=== PATIENT | female | born 1980 | race Two or more races ===

== ENCOUNTER 2020-04-04 01:38 | Emergency (ER) | payer MEDICAID, OTHER ==
[~2020-04-04] VITALS: Ht 152.4 cm; Wt 88.5 kg
[2020-04-04 03:10] VITALS: BP 141/96
[2020-04-04] MEDS: FLUORESCEIN SOD 1 MG TEST STRIP EACHEYE ONE (03:24)
[2020-04-04] MEDS: TETRACAINE HCL 0.5% OPTH(EYE) SOLN 4ML EACHEYE ONE (03:25)
[2020-04-04] MEDS: SODIUM CHLORIDE 0.9% 1,000 ML IV ONE (03:38)
[2020-04-04] MEDS: methylPREDNISolone SOD SUCC 40 MG/ML VL IV ONE (03:56)
[2020-04-04] MEDS: KETOROLAC TROMETH 30 MG/ML 1ML VIAL IV ONE (03:57)
== END 2020-04-04 05:05 | disposition home or self-care (01) ==
LOC: ER 01:38
DX: H05.223 Edema of bilateral orbit (principal); R51.9 Headache, unspecified; T39.95XA Adverse effect of unspecified nonopioid analgesic, antipyretic and antirheumatic, initial encounter; E66.9 Obesity, unspecified; Z68.38 Body mass index [BMI] 38.0-38.9, adult; Y92.9 Unspecified place or not applicable
CPT/HCPCS: 96361; 96374; 96375; 99284; J1885; J2920; J7030

== ENCOUNTER 2020-04-12 18:46 | Emergency (ER) | payer MEDICAID ==
[~2020-04-12] VITALS: Ht 170.2 cm; Wt 88.5 kg
[2020-04-12] MEDS ORDERED: SODIUM CHLORIDE 0.9% 1,000 ML IV ONE (23:00)
[2020-04-12] MEDS ORDERED: KETOROLAC TROMETH 30 MG/ML 1ML VIAL IV ONE (23:00)
[2020-04-13 00:16] VITALS: BP 136/88
== END 2020-04-13 00:44 | disposition home or self-care (01) ==
LOC: ER 18:46
DX: R22.0 Localized swelling, mass and lump, head (principal); E66.9 Obesity, unspecified; Z68.30 Body mass index [BMI] 30.0-30.9, adult
CPT/HCPCS: 96361; 96374; 99283; J1885; J7030

== ENCOUNTER 2021-06-18 23:49 | Emergency (ER) | payer MEDICAID ==
[~2021-06-18] VITALS: Ht 170.2 cm; Wt 86.2 kg
[2021-06-19 01:17] LABS: Basophils # (auto) 0 10 ^3/uL (0-0.2); Eosinophils # (auto) 0.2 10 ^3/uL (0-0.8); Hemoglobin 12.4 g/dL (12.2-16.2); Lymphocytes # (auto) 2.9 10 ^3/uL (0.4-5.4); Mean Corpuscular Volume 67.5 fL (80.0-100.0); Monocytes # (auto) 0.9 10 ^3/uL (0-1.3); Monocytes % (auto) 9.1 % (0.0-12.0)
[2021-06-19 01:20] LABS: Basophils % (auto) 0.5 % (0.0-2.0); Eosinophils % (auto) 2.3 % (0.0-7.0); Hematocrit 37.3 % (36.0-46.0); Lymphocytes % (auto) 30.4 % (10.0-50.0); Mean Corpuscular Hemoglobin 22.4 pg (28.0-32.0); Mean Corpuscular Hgb Conc. 33.2 g/dL (32.0-36.0); Neutrophils # (auto) 5.6 10 ^3/uL (1.6-8.6); Neutrophils % (auto) 57.7 % (37.0-80.0); Nucleated Red Blood Cells % 0.1 %; Red Blood Cells 5.52 10^6/uL (4.0-5.20); White Blood Cell 9.6 10^3/uL (4.4-10.8)
[2021-06-19 01:34] LABS: INR 0.97 (0.9-1.15); Partial Thromboplastin Time 25.9 sec (23.6-33.0)
[2021-06-19 01:37] LABS: Albumin 3.5 g/dL (3.4-5.0); Calcium 8.3 mg/dL (8.5-10.1); Magnesium 2.5 mg/dL (1.6-2.6); Potassium 4.2 mmol/L (3.5-5.1)
[2021-06-19 01:39] LABS: BUN/Creatinine Ratio 17.6
[2021-06-19 01:41] LABS: Bilirubin, Total 0.3 mg/dL (0.2-1.0); Total Protein 7.2 g/dL (6.4-8.2)
[2021-06-19 07:05] LABS: Urine Bacteria NONE SEEN /hpf (None Seen); Urine Blood Negative /uL (Negative); Urine Specific Gravity 1.005 (1.001-1.035); Urine WBC 1 /hpf (0 - 5)
[2021-06-19 13:36] VITALS: BP 132/68
== END 2021-06-19 13:41 | disposition home or self-care (01) ==
LOC: ER 23:49
DX: M54.2 Cervicalgia (principal); R07.89 Other chest pain; E04.1 Nontoxic single thyroid nodule; R71.8 Other abnormality of red blood cells; J45.909 Unspecified asthma, uncomplicated; Z32.02 Encounter for pregnancy test, result negative
CPT/HCPCS: 36415; 70490; 71045; 80053; 81001; 81025; 83735; 83880; 84443; 84484; 85025; 85610; 85730; 93005

== ENCOUNTER 2023-11-30 12:11 | Inpatient (IN) | payer MEDICAID ==
[~2023-11-30] VITALS: Ht 170.2 cm; Wt 83.1 kg
--- NOTE | 2023-11-30 12:46 | ED.PDOC ---
Evi. trauma (HPI) HPI Comments 43 y.o female presents to the ED s/p fall today. Patient reports she fell 4 feet from a ladder at home today. Patient's spouse reports finding her on the floor, to her left side and was unconscious. Ladder was fallen down and twisted in between patient's legs. Patient is unable to recall how she fell, states she was trying to climb down the ladders and that is all she recalls. Patient presents with left sided body and head pain. Patient also has a laceration to the left side of her head. No nausea, vomiting, dizziness, chest pain reported. Patient denies any blood thinner use. Chief Complaint: Fall Injury Time Seen by MD: 12:31 Primary Care Provider: NONE Reviewed notes: Nurses Notes, Medications, Allergies Allergies: Coded Allergies: NO KNOWN ALLERGIES (Unverified , 04/04/20) Information Source: Patient Mode of Arrival: Ambulatory Severity: Moderate Timing: Hours Duration: Since onset Location: (L) Forearm, Head, (L) Hip, (L) Leg, Neck, (L) Shoulder Location of laceration: Head Mechanism: Fall Associated signs and symtoms: Headache Past Medical History PAST MEDICAL HISTORY: Arthritis, Asthma, Thyroid Surgical History: Denies all surgeries POULTRY CUTTER History: No Pertinent POULTRY CUTTER History Family History Family History: Family hx of Cancer Social History Smoker: Non-Smoker Alcohol: Occasionally Drugs: Denies Drug Use Lives In: Home Constitutional: denies: chills, diaphoresis, fatigue, fever, malaise, sweats, weakness, others EENTM: denies: blurred vision, double vision, ear bleeding, ear discharge, ear drainage, ear pain, ear ringing, eye pain, eye redness, hearing loss, mouth pain, mouth swelling, nasal discharge, nose bleeding, nose congestion, nose pain, photophobia, tearing, throat pain, throat swelling, voice changes, others Respiratory: denies: cough, hemoptysis, orthopnea, SOB at rest, shortness of breath, SOB with excertion, stridor, wheezing, others Cardiovascular: denies: chest pain, dizzy spells, diaphoresis, Dyspnea on exertion, edema, irregular heart beat, left arm pain, lightheadedness, palpitations, PND, syncope, others Gastrointestinal: denies: abdomen distended, abdominal pain, blood streaked bowels, constipated, diarrhea, dysphagia, difficulty swallowing, hematemesis, melena, nausea, poor appetite, poor fluid intake, rectal bleeding, rectal pain, vomiting, others Genitourinary: denies: abnormal vagina bleeding, burning, dyspareunia, dysuria, flank pain, frequency, hematuria, incontinence, pain, , vagina discharge, urgency, others Neurological: reports: headache, others (left sided body pain ); denies: dizziness, fainting, left sided numbness, left sided weakness, numbness, paresthesia, pre-existing deficit, right sided numbness, right sided weakness, seizure, speech problems, tingling, tremors, weakness Musculoskeletal: denies: back pain, gout, joint pain, joint swelling, muscle pain, muscle stiffness, neck pain, others Integumetry: reports: laceration; denies: bruises, change in color, change in hair/nails, dryness, lesions, lumps, rash, wounds, others Allergic/Immunocompromised: denies: Difficulty Healing, Frequent Infections, Hives, Itching, others Hematologic/Lymphatic: denies: anemia, blood clots, easy bleeding, easy bruis ing, swollen glands, others Endocrine: denies: excessive hunger, excessive sweating, excessive thirst, exc essive urination, flushing, intolerance to cold, intolerance to heat, unexplained weight gain, unexplained weight loss, others Psychiatric: denies: anxiety, bipolar disorder, depression, hopeless, panic disorder, schizophrenia, sleepless, suicidal, others All Other Systems: Reviewed and Negative Physical Exam General Appearance: Moderate Distress HEENT: Normal ENT Inspection, Pharynx Normal, TMs Normal Neck: Full Range of Motion, Non-Tender, Normal, Normal Inspection Respiratory: Chest Non-Tender, Lungs Clear, No Accessory Muscle Use, No Respiratory Distress, Normal Breath Sounds Cardiovascular: No Edema, No JVD, No Murmur, No Gallop, Normal Peripheral Pulses, Regular Rate/Rhythm Breast Exam: Deferred Gastrointestinal: No Organomegaly, Non Tender, No Pulsatile Mass, Normal Bowel Sounds, Soft Genitalia: Deferred Pelvic: Deferred Rectal: Deferred Extremities: No calf tenderness, Normal capillary refill, Normal inspection, Normal range of motion, Non-tender, No pedal edema Musculoskeletal : Apperance: Normal Neurologic: Alert, database design analyst II-XII nml as Tested, No Motor Deficits, Normal Affect, Normal Mood, No Sensory Deficits Cerebellar Function: Normal Reflexes: Normal Skin: Bruises (Left side of the scalp minor scrape), Wounds (Left scalp) Peripheral Pulses: 3+ Radial (R), 3+ Radial (L) Lymphatic: No Adenopathy Was a procedure done? Was a procedure done?: No Differential Diagnosis Multiple Trauma: Closed Head Injury, Fractures, Abrasions, Contusion, Laceration X-Ray, Labs, Meds, VS Vital Signs Date Time Temp Pulse Resp B/P (MAP) Pulse Ox O2 Delivery O2 Flow Rate FiO2 11/30/23 12:15 98.5 92 16 161/113 (129) 98 Lab Test 11/30/23 13:21 Range/Units White Blood Count 11.6 H 4.4-10.8 10^3/uL Red Blood Count 5.72 H 4.0-5.20 10^6/uL Hemoglobin 12.4 12.2-16.2 g/dL Hematocrit 39.2 36.0-46.0 % Mean Corpuscular Volume 68.5 L 80.0-100.0 fL Mean Corpuscular Hemoglobin 21.6 L 28.0-32.0 pg Mean Corpuscular Hemoglobin Concent 31.6 L 32.0-36.0 g/dL Red Cell Distribution Width 15.0 H 11.8-14.3 % Platelet Count 236 140-450 10^3/uL Mean Platelet Volume 8.4 6.9-10.8 fL Neutrophils (%) (Auto) 74.1 37.0-80.0 % Lymphocytes (%) (Auto) 15.8 10.0-50.0 % Monocytes (%) (Auto) 7.2 0.0-12.0 % Eosinophils (%) (Auto) 2.7 0.0-7.0 % Basophils (%) (Auto) 0.2 0.0-2.0 % Neutrophils # (Auto) 8.6 1.6-8.6 10 ^3/uL Lymphocytes # (Auto) 1.8 0.4-5.4 10 ^3/uL Monocytes # (Auto) 0.8 0-1.3 10 ^3/uL Eosinophils # (Auto) 0.3 0-0.8 10 ^3/uL Basophils # (Auto) 0 0-0.2 10 ^3/uL Nucleated Red Blood Cells 0.0 % Platelet Estimate Adequate Hypochromasia (manual) Moderate Microcytosis Marked Sodium Level 139 136-145 mmol/L Potassium Level 4.0 3.5-5.1 mmol/L Chloride Level 108 H 98-107 mmol/L Carbon Dioxide Level 26 20-31 mmol/L Anion Gap 5 5-15 Blood Urea Nitrogen 8 L 9-23 mg/dL Creatinine 0.66 0.550-1.02 mg/dL Glomerular Filtration Rate Calc 110 >90 mL/min BUN/Creatinine Ratio 12.1 10.0-20.0 Serum Glucose 109 H 74-106 mg/dL Calcium Level 9.2 8.7-10.4 mg/dL Patient alert. Status post fall. Does have hematoma in the left scalp area. Minor abrasion. CT of the head reviewed does not show any acute process. Vitals stable. Answering all questions. WBC slightly elevated. Blood pressure elevated. Was given clonidine. Explained to the patient. X-Ray, Labs, Meds, VS Comment EXAM: CT HEAD WITHOUT CONTRAST HISTORY: fall COMPARISON: None TECHNIQUE: Axial images were obtained and reformatted in coronal and sagittal planes. All CT scans at this medical facility are performed using dose modulation techniques as appropriate to a performed exam including the following: Automated exposure control was utilized; adjustment of the MA and/or KV according to patient size; and use of iterative reconstruction technique. CT Dose: CTDI volume is 53.8 mGy. Dose-length product is 972 mGy*cm FINDINGS: Supratentorial Region: No evidence for large acute territorial ischemia. No intracranial hemorrhage is noted. Posterior Fossa: No acute abnormality. Brainstem: Unremarkable. Sellar/Suprasellar Region: Unremarkable. Ventricles, Cisterns, Sulci: Age-appropriate. Orbits: Unremarkable. Paranasal Sinuses: Unremarkable. Mastoid Air Cells: Unremarkable. Vasculature: Unremarkable. Bones/Soft Tissues: No osseous abnormality. Left parietal scalp laceration with a large underlying hematoma measuring 1.5 cm in thickness and 6 cm in AP Other: None. IMPRESSION: 1. No acute intracranial process. 2. Left parietal scalp laceration with a large underlying hematoma. No acute calvarial fracture. EXAM: XY L ELBOW 3 VIEW XRAY CLINICAL HISTORY: fall COMPARISON: None TECHNIQUE: XY L ELBOW 3 VIEW XRAY Findings/Impression: 3 views of the left elbow. There is no evidence of an acute fracture, dislocation, blastic, or lytic lesions. No radiopaque foreign bodies. No joint effusion. Mild soft tissue edema. Procedure: CT CERVICAL WITHOUT CONTRAST 11/30/2023 12:55 PM Indication:fall. Comparison Study: None. Technique: Axial images were obtained and reformatted in coronal and sagittal pl anes. All CT scans at this medical facility are performed using dose modulation techniques as appropriate to a performed exam including the following: Automated exposure control was utilized; adjustment of the MA and/or KV according to patient size; and use of iterative reconstruction technique. CT Dose: CTDI volume is 17.93 mGy. Dose-length product is 472.88 mGy*cm FINDINGS: Bones: The vertebrae are normal in height. Normal alignment of the vertebrae. Lateral masses C1 and C2 are well aligned. The posterior facet joints are well aligned. There is moderate narrowing of C5-C6 disc height and mild narrowing of C4-C5 disc height. Discogenic endplate changes are seen at C4- C6 levels. Soft tissues: Paraspinal and prevertebral soft tissues are within normal limits. IMPRESSION: 1. Reversal of normal lordosis that could be positional, reflect muscle spasm or pain. Correlate clinically. 2. No acute osseous abnormality. 3. Degenerative disc disease C4-C6 levels. Time of 1ST Reevaluation: 12:42 Reevaluation 1ST: Unchanged Patient Education/Counseling: Diagnosis, Treatment, Prognosis Family Education/Counseling: Diagnosis, Treatment, Prognosis Departure 1 Departure Time of Disposition: 14:31 Impression: Primary Impression: Head injury Qualified Codes: S09.90XA - Unspecified injury of head, initial encounter Additional Impression: Scalp hematoma Qualified Codes: S00.03XA - Contusion of scalp, initial encounter Disposition: ADMITTED INPATIENT Admit to: Med Surg Condition: Guarded Critical Care Note Critical Care Time?: Yes (45 min-critical care time only) Stability Stability form required: No I personally scribed for ZOE GONZALES MD ([email or web address]) on 11/30/23 at 12:46. Electronically submitted by Julia Hyatt ([facility]). I personally scribed for ZOE GONZALES MD ([email or web address]) on 11/30/23 at 16:29. Electronically submitted by Julia Hyatt ([facility]). ZOE GONZALES MD Nov 30, 2023 12:46
[2023-11-30 13:31] LABS: Basophils # (auto) 0 10 ^3/uL (0-0.2); Basophils % (auto) 0.2 % (0.0-2.0); Eosinophils # (auto) 0.3 10 ^3/uL (0-0.8); Eosinophils % (auto) 2.7 % (0.0-7.0); Hematocrit 39.2 % (36.0-46.0); Hemoglobin 12.4 g/dL (12.2-16.2); Lymphocytes # (auto) 1.8 10 ^3/uL (0.4-5.4); Lymphocytes % (auto) 15.8 % (10.0-50.0); Mean Corpuscular Hemoglobin 21.6 pg (28.0-32.0); Mean Corpuscular Hgb Conc. 31.6 g/dL (32.0-36.0); Mean Corpuscular Volume 68.5 fL (80.0-100.0); Monocytes # (auto) 0.8 10 ^3/uL (0-1.3); Monocytes % (auto) 7.2 % (0.0-12.0); Neutrophils # (auto) 8.6 10 ^3/uL (1.6-8.6); Neutrophils % (auto) 74.1 % (37.0-80.0); Platelet Count (auto) 236 10^3/uL (140-450); Red Blood Cells 5.72 10^6/uL (4.0-5.20); White Blood Cell 11.6 10^3/uL (4.4-10.8)
--- NOTE | 2023-11-30 13:36 | DVH ---
EXAM: CT HEAD WITHOUT CONTRAST HISTORY: fall COMPARISON: None TECHNIQUE: Axial images were obtained and reformatted in coronal and sagittal planes. All CT scans at this medical facility are performed using dose modulation techniques as appropriate t o a performed exam including the following: Automated exposure control was utilized; adjustment of th e MA and/or KV according to patient size; and use of iterative reconstruction technique. CT Dose: CTDI volume is 53.8 mGy. Dose-length product is 972 mGy*cm FINDINGS: Supratentorial Region: No evidence for large acute territorial ischemia. No intracranial hemorrhage is noted. Posterior Fossa: No acute abnormality. Brainstem: Unremarkable. Sellar/Suprasellar Region: Unremarkable. Ventricles, Cisterns, Sulci: Age-appropriate. Orbits: Unremarkable. Paranasal Sinuses: Unremarkable. Mastoid Air Cells: Unremarkable. Vasculature: Unremarkable. Bones/Soft Tissues: No osseous abnormality. Left parietal scalp laceration with a large underlying hematoma measuring 1.5 cm in thickness and 6 cm in AP Other: None. IMPRESSION: 1. No acute intracranial process. 2. Left parietal scalp laceration with a large underlying hematoma. No acute calvarial fracture.
--- NOTE | 2023-11-30 13:38 | DVH ---
EXAM: XY L ELBOW 3 VIEW XRAY CLINICAL HISTORY: fall COMPARISON: None TECHNIQUE: XY L ELBOW 3 VIEW XRAY Findings/Impression: 3 views of the left elbow. There is no evidence of an acute fracture, dislocation, blastic, or lytic lesions. No radiopaque foreign bodies. No joint effusion. Mild soft tissue edema.
[2023-11-30 13:48] LABS: Chloride 108 mmol/L (98-107); Sodium 139 mmol/L (136-145)
[2023-11-30 13:49] LABS: Anion Gap 5 (5-15); Carbon Dioxide 26 mmol/L (20-31)
[2023-11-30 13:50] LABS: Calcium 9.2 mg/dL (8.7-10.4)
--- NOTE | 2023-11-30 13:51 | DVH ---
Procedure: CT CERVICAL WITHOUT CONTRAST 11/30/2023 12:55 PM Indication:fall. Comparison Study: None. Technique: Axial images were obtained and reformatted in coronal and sagittal planes. All CT scans at this medical facility are performed using dose modulation techniques as appropriate t o a performed exam including the following: Automated exposure control was utilized; adjustment of th e MA and/or KV according to patient size; and use of iterative reconstruction technique. CT Dose: CTDI volume is 17.93 mGy. Dose-length product is 472.88 mGy*cm FINDINGS: Bones: The vertebrae are normal in height. Normal alignment of the vertebrae. Lateral masses C1 and C2 are well aligned. The posterior facet joints are well aligned. There is moderate narrowing of C5-C 6 disc height and mild narrowing of C4-C5 disc height. Discogenic endplate changes are seen at C4- C 6 levels. Soft tissues: Paraspinal and prevertebral soft tissues are within normal limits. IMPRESSION: 1. Reversal of normal lordosis that could be positional, reflect muscle spasm or pain. Correlate clin ically. 2. No acute osseous abnormality. 3. Degenerative disc disease C4-C6 levels.
[2023-11-30 13:55] LABS: BUN/Creatinine Ratio 12.1 (10.0-20.0); Blood Urea Nitrogen 8 mg/dL (9-23); Glucose 109 mg/dL (74-106)
[2023-11-30 14:34] LABS: Hypochromia Moderate; Platelet Estimate Adequate
[2023-11-30] MEDS: TETANUS-DIPTH-ACEL PERTUSSIS 0.5ML SYR Tdap IM ONE (17:04)
[2023-11-30 17:05] VITALS: PULSE 91; RESP 25; O2SAT 96
[2023-11-30] MEDS ORDERED: ATOR10TA52 PO (17:15)
[2023-11-30] MEDS ORDERED: ACETAMINOPHEN 325 MG TAB PO PRN (17:15)
[2023-11-30] MEDS ORDERED: MORPHINE SULFATE INJ 2 MG/ml SYRG IV PRN (17:15)
--- NOTE | 2023-11-30 18:14 | DVHHP2 ---
History of Present Illness Reason for Visit: Status post mechanical fall with injury History of Present Illness 43-year-old female presented to the ED status post fall from 4 ft ladder at home. Per patient's spouse the patient fell from a ladder and fell onto concrete, patient was reportedly sluggish to respond after fall. Patient noted to have swelling to left posterior head and a laceration approximately 1 cm in length, bleeding controlled. Patient complained of head, neck, left arm and right lower extremity pain 10/10. Patient denies any visual changes. Patient is alert and oriented x4 and walks with steady gait. CT of head showed no acute intracranial process, cervical spine showed only degenerative changes, elbow x-ray showed no evidence of fracture, dislocation, blastic or lytic lesions. Patient denies chest pain, headache, dizziness, diaphoresis, shortness of breath, abdominal pain, no nausea, vomiting, fever, or chills endorsed by the patient. Patient was admitted for further evaluation medical management. Past Medical History Neuropathy, hyperlipidemia Past Surgical History Denies Family History Reviewed noncontributory to the management of this case Smoke: No ALCOHOL: rare Drugs: None Lives: with Family Review of Systems Constitutional: No: Fever, Chills, Sweats, Weakness, Malaise, Other Eyes: No: Pain, Vision change, Conjunctivae inflammation, Eyelid inflammation, Other, Redness ENT: No: Ear pain, Ear discharge, Nose pain, Nose discharge, Nose congestion, Mouth pain, Mouth swelling, Throat pain, Throat swelling, Other Respiratory: No: Cough, Dry, Shortness of breath, SOB with excertion, Wheezing, Hemoptysis, Pleuritic Pain, Sputum, Wheezing, Other Cardiovascular: No: Chest Pain, Palpitations, Orthopnea, Paroxysmal Noc. Dyspnea, Edema, Lt Headedness, Other Gastrointestinal: No: Nausea, Vomiting, Abdominal Pain, Diarrhea, Constipation, Melena, Hematochezia, Other Genitourinary: No Dysuria, No Frequency, No Incontinence, No Hematuria, No Retention, No Other Musculoskeletal: other (Head pain mild), neck pain, arm pain (Left arm) Skin: No: Rash, Lesions, Jaundice, Bruising, Other Neurological: No: Weakness, Numbness, Incoordination, Change in speech, Con fusion, Seizures, Other Allergies: Coded Allergies: NO KNOWN ALLERGIES (Unverified , 04/04/20) Medications Current Medications Medications Dose Ordered Sig/[place]erson Route Start Time Stop Time Status Last Admin Dose Admin Acetaminophen 650 mg Q6HP PRN PO 11/30/23 17:15 Ondansetron HCl 4 mg Q4HP PRN IV 11/30/23 17:15 Atorvastatin Calcium 10 mg HS PO 11/30/23 22:00 Morphine Sulfate 2 mg Q4HPRN PRN IV 11/30/23 18:15 UNV Gabapentin 300 mg HS PO 11/30/23 22:00 UNV Exam Vital Signs Vital Signs Date Time Temp Pulse Resp B/P (MAP) Pulse Ox O2 Delivery O2 Flow Rate FiO2 11/30/23 17:05 91 25 96 Room Air* 0 21 11/30/23 17:05 98.4 133/84 (100) 98.4 General Appearance: Alert, Oriented X3, Cooperative, No acute distress HEENT: Atraumatic, PERRLA, EOMI, Mucous membr. moist/pink Respiratory: Clear to auscultation, Normal air movement Cardiovascular: Regular rate, Normal S1, Normal S2, No murmurs Abdominal: Normal bowel sounds, Soft, No tenderness, No hepatospenomegaly, No masses Extremities: No clubbing, No cyanosis, No edema, Normal pulses, Other (Left arm pain) Skin: No rashes, No breakdown, No significant lesion Neuro: Normal gait, Normal speech, Strength at 5/5 X4 ext, Normal tone, Sensation intact, Cranial nerves 3-12 NL, Reflexes 2+ Psych/Mental Status: Mental status NL, Mood NL Labs/Xrays Labs, imaging and ED notes reviewed Labs Test 11/30/23 13:21 Range/Units White Blood Count 11.6 H 4.4-10.8 10^3/uL Red Blood Count 5.72 H 4.0-5.20 10^6/uL Hemoglobin 12.4 12.2-16.2 g/dL Hematocrit 39.2 36.0-46.0 % Mean Corpuscular Volume 68.5 L 80.0-100.0 fL Mean Corpuscular Hemoglobin 21.6 L 28.0-32.0 pg Mean Corpuscular Hemoglobin Concent 31.6 L 32.0-36.0 g/dL Red Cell Distribution Width 15.0 H 11.8-14.3 % Platelet Count 236 140-450 10^3/uL Mean Platelet Volume 8.4 6.9-10.8 fL Neutrophils (%) (Auto) 74.1 37.0-80.0 % Lymphocytes (%) (Auto) 15.8 10.0-50.0 % Monocytes (%) (Auto) 7.2 0.0-12.0 % Eosinophils (%) (Auto) 2.7 0.0-7.0 % Basophils (%) (Auto) 0.2 0.0-2.0 % Neutrophils # (Auto) 8.6 1.6-8.6 10 ^3/uL Lymphocytes # (Auto) 1.8 0.4-5.4 10 ^3/uL Monocytes # (Auto) 0.8 0-1.3 10 ^3/uL Eosinophils # (Auto) 0.3 0-0.8 10 ^3/uL Basophils # (Auto) 0 0-0.2 10 ^3/uL Nucleated Red Blood Cells 0.0 % Platelet Estimate Adequate Hypochromasia (manual) Moderate Microcytosis Marked Sodium Level 139 136-145 mmol/L Potassium Level 4.0 3.5-5.1 mmol/L Chloride Level 108 H 98-107 mmol/L Carbon Dioxide Level 26 20-31 mmol/L Anion Gap 5 5-15 Blood Urea Nitrogen 8 L 9-23 mg/dL Creatinine 0.66 0.550-1.02 mg/dL Glomerular Filtration Rate Calc 110 >90 mL/min BUN/Creatinine Ratio 12.1 10.0-20.0 Serum Glucose 109 H 74-106 mg/dL Calcium Level 9.2 8.7-10.4 mg/dL Assessment/Plan Assessment/Plan Status post mechanical fall with head injury Admit to medical/surgical Small laceration to head, no longer bleeding Hematoma on head CT Pain medication p.r.n. Zofran p.r.n. nausea Chronic hyperlipidemia Resume home Atorvastatin Chronic neuropathy/restless leg syndrome Unable to continue patient's home medications as we do not have them. Patient can bring them in and we can resume Resume home gabapentin for now Melatonin for sleep FEN/PPX VTE and GI prophylaxis not indicated Cardiac diet Advanced care plan discussed with the patient at the bedside for at least 30 minutes, patient is a full code Plan discussed with: Patient My Orders Orders - BETINA HILL [employer]OR Procedure Category Date Status Time Admit ADMIT 11/30/23 Transmitted 17:08 Code Status CODE 11/30/23 Transmitted 17:08 Vital Signs [facility] 11/30/23 In Process 17:08 Review Orders With [facility] 11/30/23 In Process Adm. 17:08 Bedside Commode [facility] 11/30/23 In Process 17:08 Bedrest With Bathroom [facility] 11/30/23 In Process Privileg 17:08 Acetaminophen Tablet [facility] 11/30/23 In Process (Tylenol Tablet) 17:15 Notify Of Changes [facility] 11/30/23 In Process From Base 17:08 Advance Directive [facility] 11/30/23 In Process 17:08 Basic Metabolic Panel LAB 12/01/23 Verified 04:00 Complete Blood Count LAB 12/01/23 Verified 04:00 Patient Condition ORDERS 11/30/23 Transmitted 17:08 Allergies CHONG 11/30/23 In Process 17:08 Ondansetron Hcl PHA 11/30/23 In Process (Zofran) 17:15 Sequential CHONG 11/30/23 In Process Compression Device Cardiac DIET 11/30/23 Transmitted Diet-2gna,Lofat,Lochol Dinner Atorvastatin (Lipitor) PHA 11/30/23 In Process 22:00 Morphine Sulfate PHA 11/30/23 Logged Injection 18:15 Melatonin (Melatonin) PHA 11/30/23 Transmitted 22:00 Gabapentin Capsule PHA 11/30/23 Logged (Neurontin Capsule) 22:00 Date of Service: Nov 30, 2023 Billing Provider: BETINA HILL Common Visit Codes: [id number] INP/OBS CARE (HIGH) Secondary Visit Codes: [id number] CARE PLAN 30 MINUTES BETINA HILL Nov 30, 2023 18:14
[2023-11-30] MEDS: MORPHINE SULFATE 4 MG/ML SYR/VIAL IV ONE (18:58)
[2023-11-30] MEDS: ONDANSETRON HCL 4 MG/2 ML VIAL IV ONE (18:59)
[2023-11-30 19:30] VITALS: PULSE 88; RESP 18; O2SAT 96
[2023-11-30] MEDS: GABAPENTIN 300 MG CAP PO SCH (22:21)
[2023-11-30] MEDS: MELATONIN 5 MG TAB PO ONE (22:22)
[2023-11-30] MEDS: ATORVASTATIN 20 MG TAB PO SCH (22:22)
[2023-12-01] MEDS: MORPHINE SULFATE INJ 2 MG/ml SYRG IV PRN (01:37)
[2023-12-01] MEDS: ONDANSETRON HCL 4 MG/2 ML VIAL IV PRN (01:38)
[2023-12-01 04:44] LABS: Chloride 109 mmol/L (98-107); Potassium 4.3 mmol/L (3.5-5.1); Sodium 138 mmol/L (136-145)
[2023-12-01 04:45] LABS: Anion Gap 4 (5-15); Carbon Dioxide 25 mmol/L (20-31)
[2023-12-01 04:50] LABS: BUN/Creatinine Ratio 14.3 (10.0-20.0); Blood Urea Nitrogen 9 mg/dL (9-23); Glucose 131 mg/dL (74-106)
[2023-12-01 04:51] LABS: Basophils # (auto) 0 10 ^3/uL (0-0.2); Basophils % (auto) 0.3 % (0.0-2.0); Eosinophils # (auto) 0.3 10 ^3/uL (0-0.8); Hemoglobin 11.4 g/dL (12.2-16.2); Lymphocytes # (auto) 2.3 10 ^3/uL (0.4-5.4); Lymphocytes % (auto) 28.8 % (10.0-50.0); Nucleated Red Blood Cells % 0.1 %; Red Cell Distribution Width 15.1 % (11.8-14.3)
[2023-12-01 04:54] LABS: Eosinophils % (auto) 3.4 % (0.0-7.0); Hematocrit 34.9 % (36.0-46.0); Mean Corpuscular Hgb Conc. 32.6 g/dL (32.0-36.0); Mean Corpuscular Volume 67.5 fL (80.0-100.0); Monocytes # (auto) 0.7 10 ^3/uL (0-1.3); Monocytes % (auto) 8.9 % (0.0-12.0); Neutrophils # (auto) 4.7 10 ^3/uL (1.6-8.6); Neutrophils % (auto) 58.6 % (37.0-80.0); Platelet Count (auto) 211 10^3/uL (140-450); Red Blood Cells 5.17 10^6/uL (4.0-5.20); White Blood Cell 8.1 10^3/uL (4.4-10.8)
[2023-12-01 07:30] VITALS: PULSE 88; RESP 16; TEMP 97.8; O2SAT 93
[2023-12-01 11:00] VITALS: BP 156/105; PULSE 105; RESP 16; O2SAT 98
--- NOTE | 2023-12-01 18:45 | DVHDS2 ---
Discharge Summary Date of Admission Nov 30, 2023 at 17:08 Date of Discharge: Dec 01, 2023 Labs/Diagnostic Data: Laboratory Results Test 12/01/23 04:12 11/30/23 13:21 White Blood Count 8.1 10^3/uL (4.4-10.8) Red Blood Count 5.17 10^6/uL (4.0-5.20) Hemoglobin 11.4 g/dL (12.2-16.2) Hematocrit 34.9 % (36.0-46.0) Mean Corpuscular Volume 67.5 fL (80.0-100.0) Mean Corpuscular Hemoglobin 22.0 pg (28.0-32.0) Mean Corpuscular Hemoglobin Concent 32.6 g/dL (32.0-36.0) Red Cell Distribution Width 15.1 % (11.8-14.3) Platelet Count 211 10^3/uL (140-450) Mean Platelet Volume 8.5 fL (6.9-10.8) Neutrophils (%) (Auto) 58.6 % (37.0-80.0) Lymphocytes (%) (Auto) 28.8 % (10.0-50.0) Monocytes (%) (Auto) 8.9 % (0.0-12.0) Eosinophils (%) (Auto) 3.4 % (0.0-7.0) Basophils (%) (Auto) 0.3 % (0.0-2.0) Neutrophils # (Auto) 4.7 10 ^3/uL (1.6-8.6) Lymphocytes # (Auto) 2.3 10 ^3/uL (0.4-5.4) Monocytes # (Auto) 0.7 10 ^3/uL (0-1.3) Eosinophils # (Auto) 0.3 10 ^3/uL (0-0.8) Basophils # (Auto) 0 10 ^3/uL (0-0.2) Nucleated Red Blood Cells 0.1 % Sodium Level 138 mmol/L (136-145) Potassium Level 4.3 mmol/L (3.5-5.1) Chloride Level 109 mmol/L (98-107) Carbon Dioxide Level 25 mmol/L (20-31) Anion Gap 4 (5-15) Blood Urea Nitrogen 9 mg/dL (9-23) Creatinine 0.63 mg/dL (0.550-1.02) Glomerular Filtration Rate Calc 111 mL/min (>90) BUN/Creatinine Ratio 14.3 (10.0-20.0) Serum Glucose 131 mg/dL (74-106) Calcium Level 9.0 mg/dL (8.7-10.4) Platelet Estimate Adequate Hypochromasia (manual) Moderate Microcytosis Marked Other Laboratory Tests 12/01/23 04:12 Brief Hx & Hospital Course: 43-year-old female w pmhx Neuropathy, hyperlipidemia presented to the ED status post fall from 4 ft ladder at home. Per patient's spouse the patient fell from a ladder and fell onto concrete, patient was reportedly sluggish to respond after fall. Patient noted to have swelling to left posterior head and a laceration approximately 1 cm in length, bleeding controlled. Patient complained of head, neck, left arm and right lower extremity pain 10/10. Patient denies any visual changes. Patient is alert and oriented x4 and walks with steady gait. CT of head showed no acute intracranial process, cervical spine showed only degenerative changes, elbow x-ray showed no evidence of fracture, dislocation, blastic or lytic lesions. patient grew impatient with the wait and asked to leave AMA. patient left AMA diagnosis at admit: Status post mechanical fall with head injury; Admit to medical/surgical ; Small laceration to head, Chronic hyperlipidemia; Chronic neuropathy/restless leg syndrome Condition at Discharge: Undetermined Final Diagnosis/Problems List Status post mechanical fall with head injury (likely concussion) Discharge Disposition: AMA Discharge Instruct/Medications Diet: See Comment Diet comment: ama Activity: See Comment Activity comment: ama Discharge Statement: "Patient was advised to return to the ER or call 911 if any headaches, dizziness, shortness of breath, chest pain, abdominal pain, bleeding, fevers, or worsening of medical condition. Patient was counseled about treatment plan, medications, possible side effects, patientverbalized understanding. All questions were answered to the best of my ability. This discharge took greater then 30 minutes in planning, reviewing documentation, counseling the patient, and discussing with other team members." ASSESSMENT ASSESSMENT Hospital Course as above Assessment Status post mechanical fall with head injury; Admit to medical/surgical ; Small laceration to head, Chronic hyperlipidemia; Chronic neuropathy/restless leg syndrome Date of Service: Dec 01, 2023 Billing Provider: JULES DIAZ MD Common Visit Codes: 01245-ZHV/OBS DISCH DAY >30min JULES DIAZ MD Dec 01, 2023 18:45
== END 2023-12-01 11:28 | disposition left against medical advice (07) | DRG 384 ==
LOC: ER 12:11 → OVERFLOW 17:08
PROVIDERS: ADMIT Registered Nurse General Practice; ATTEND Student in an Organized Health Care Education/Training Program
DX: S00.03XA Contusion of scalp, initial encounter (principal); S06.0XAA Concussion with loss of consciousness status unknown, initial encounter; E78.5 Hyperlipidemia, unspecified; G25.81 Restless legs syndrome; J45.909 Unspecified asthma, uncomplicated; G62.9 Polyneuropathy, unspecified; Z53.29 Procedure and treatment not carried out because of patient's decision for other reasons; Z79.899 Other long term (current) drug therapy; W11.XXXA Fall on and from ladder, initial encounter; Y93.89 Activity, other specified; Y92.098 Other place in other non-institutional residence as the place of occurrence of the external cause; Y99.8 Other external cause status
CPT/HCPCS: 36415; 70450; 72125; 73080; 80048; 85025; 90471; 90715; 99291; G0378; J2405